=== PATIENT | female | born 1990 | race Caucasian/White ===

== ENCOUNTER 2019-09-24 12:23 | Emergency (ER) | payer SELFPAY ==
[~2019-09-24] VITALS: Ht 154.9 cm; Wt 64.8 kg
[2019-09-24 12:31] VITALS: BP 149/74
[2019-09-24] MEDS ORDERED: LIDOCAINE-MPF 1%, 5ML ONE (12:48)
[2019-09-24] MEDS ORDERED: LIDOCAINE-MPF 1%, 5ML INFIL ONE (13:00)
== END 2019-09-24 13:56 | disposition home or self-care (01) ==
LOC: ED 13:30
DX: L02.31 Cutaneous abscess of buttock (principal)
CPT/HCPCS: 10060; 99283